=== PATIENT | male | born 1960 | race Caucasian/White ===

== ENCOUNTER 2020-09-25 17:02 | Emergency (ER) | payer SELFPAY ==
[~2020-09-25] VITALS: Ht 170.2 cm; Wt 75.0 kg
--- NOTE | 2020-09-25 17:30 | NUR ---
assumed care of pt. pt here c/o intermittent Chest pressure and SOB with exertion x2 days. pt reports that he started having pain during regular excersize yesterday. pt reports that he was seen by his MD today and given [employer]. pt reports that his pain is very minimal at this time. no SOB, no resp. distress. pink warm and dry. pt reports that he is having some intermittent nausea, no vomiting. no family at bedside
[2020-09-25] MEDS ORDERED: SODIUM CHLORIDE FLUSH 10ML SYR IVF ONE (18:00)
[2020-09-25 18:06] LABS: BASOPHILS % (AUTO) 1 % (0-1); EOSINOPHILS % (AUTO) 1 % (1-7); LYMPHOCYTES % (AUTO) 18 % (22-44); MEAN CORPUSCULAR HEMOGLOBIN 27.7 pg (27.5-34.5); MEAN CORPUSCULAR HGB CONC 33.4 g/dL (33.2-36.2); MEAN PLATELET VOLUME 7.6 fL (7.4-10.4); MONOCYTES % (AUTO) 7 % (2-9); NEUTROPHILS % (AUTO) 74 % (42-75); PLATELET COUNT 250 x10^3/uL (130-400); RED BLOOD COUNT 5.66 x10^6/uL (4.38-5.82); RED CELL DISTRIBUTION WIDTH 18.8 % (9.4-14.8)
[2020-09-25 18:09] LABS: MD NO
[2020-09-25 18:15] LABS: ALBUMIN 3.7 g/dL (3.4-5.0); ANION GAP 3 mmol/L (5-15); CALCIUM 9.1 mg/dL (8.5-10.1); CHLORIDE 108 mmol/L (98-107)
--- NOTE | 2020-09-25 18:15 | NUR ---
lab has been to bedside to draw and CXR has been completed. warm blankets given and pt resting in position of comfort. pt updated on POC
[2020-09-25 18:21] LABS: ALANINE AMINOTRANSFERASE 30 U/L (12-78); ALKALINE PHOSPHATASE 63 U/L (45-117); BILIRUBIN,TOTAL 0.5 mg/dL (0.2-1.0); CREATININE 1.43 mg/dL (0.7-1.3); TOTAL PROTEIN 7.3 g/dL (6.4-8.2); TROPONIN I < 0.015 ng/mL (0.000-0.045)
--- NOTE | 2020-09-25 18:42 | NUR ---
test results back. chart up for MD recheck
[2020-09-25 18:51] VITALS: BP 162/107
--- NOTE | 2020-09-25 18:54 | NUR ---
awaiting recheck report to Suzie ANN
--- NOTE | 2020-09-25 19:15 | NUR ---
PT AMBULATORY BACK FROM BATHROOM C STEADY GAIT. STATES FEELING GREAT, READY TO LEAVE. FAMILY AT BS. PT AWARE CHART UP FOR REVIEW. WILL CTM.
--- NOTE | 2020-09-25 19:38 | NUR ---
ER MD AT BS TO DISCUSS PLAN OF CARE, FOR REPEAT TROP/ADMISSION. WILL MONITOR FOR ORDERS. FAMILY AT BS.
--- NOTE | 2020-09-25 20:01 | NUR ---
PHLEB AT BS.
[2020-09-25 20:25] LABS: TROPONIN I < 0.015 ng/mL (0.000-0.045)
== END 2020-09-25 21:04 | disposition home or self-care (01) ==
LOC: ED 17:32
DX: R07.2 Precordial pain (principal); R94.31 Abnormal electrocardiogram [ECG] [EKG]; Z87.891 Personal history of nicotine dependence
CPT/HCPCS: 36415; 71045; 80053; 84484; 85025; 93005; 99285

== ENCOUNTER 2020-10-10 12:05 | Inpatient (IN) | payer SELFPAY ==
[~2020-10-10] VITALS: Ht 170.2 cm; Wt 74.5 kg
[2020-10-10] MEDS: SODIUM CHLORIDE 0.9% 1,000 ML IV SCH ×2 (06:00→16:00)
[2020-10-10 12:30] LABS: BASOPHILS % (AUTO) 1 % (0-1); EOSINOPHILS % (AUTO) 2 % (1-7); LYMPHOCYTES % (AUTO) 21 % (22-44); MEAN CORPUSCULAR HEMOGLOBIN 27.5 pg (27.5-34.5); MEAN CORPUSCULAR HGB CONC 33.2 g/dL (33.2-36.2); MEAN PLATELET VOLUME 7.8 fL (7.4-10.4); MONOCYTES % (AUTO) 7 % (2-9); NEUTROPHILS % (AUTO) 69 % (42-75); PLATELET COUNT 207 x10^3/uL (130-400); RED BLOOD COUNT 5.56 x10^6/uL (4.38-5.82); RED CELL DISTRIBUTION WIDTH 17.6 % (9.4-14.8)
[2020-10-10 12:31] LABS: MD NO
[2020-10-10 12:43] LABS: ALANINE AMINOTRANSFERASE 36 U/L (12-78); ANION GAP 3 mmol/L (5-15); CALCIUM 8.8 mg/dL (8.5-10.1); CHLORIDE 109 mmol/L (98-107); CREATININE 1.42 mg/dL (0.7-1.3)
[2020-10-10 12:47] LABS: ALKALINE PHOSPHATASE 69 U/L (45-117); BILIRUBIN,TOTAL 0.5 mg/dL (0.2-1.0); TOTAL PROTEIN 7.4 g/dL (6.4-8.2)
--- NOTE | 2020-10-10 13:07 | NUR ---
"MY EPISODES HAVE BEEN GETTING WORSE EVERY DAY. CHEST PAIN, SQUEEZING PAIN, IN THE ARMS" HAS BEEN FOR MONTHS Ecg in triage Trop noted to be positive Roomed- placed on video control engineer
[2020-10-10] MEDS ORDERED: LOSA100T14 PO (13:16)
[2020-10-10] MEDS ORDERED: TRAM50TA2 PO (13:16)
[2020-10-10] MEDS ORDERED: ASPI-963 PO (13:16)
[2020-10-10] MEDS ORDERED: PANT40TA3 PO (13:16)
[2020-10-10] MEDS ORDERED: ASPIRIN 81 MG TABLET CHEW ONE (13:24)
--- NOTE | 2020-10-10 13:25 | NUR ---
medicated per emar with asa for cp/+trop repeat ecg obtained for continued chest pain/ elevated st in lead II on the monitor
[2020-10-10] MEDS ORDERED: ASPIRIN 81 MG TABLET CHEW PO ONE (13:30)
[2020-10-10] MEDS: NITROGLYCERIN OINT 2%, 1GM TP SCH (14:10)
[2020-10-10] MEDS ORDERED: ONDANSETRON ODT 4 MG PO PRN (14:30)
[2020-10-10] MEDS ORDERED: ACETAMINOPHEN 325 MG TABLET PO PRN (14:30)
[2020-10-10] MEDS ORDERED: TEMAZEPAM 15 MG CAPSULE PO PRN (14:30)
[2020-10-10] MEDS ORDERED: morphine SULFATE 10 MG/ML, 1ML IVPush PRN (14:30)
[2020-10-10] MEDS ORDERED: LABETALOL 5MG/ML, 20ML IVPush PRN (14:30)
[2020-10-10] MEDS ORDERED: POLYETHYLENE GLYCOL 17 GM PACKET PO PRN (14:30)
[2020-10-10] MEDS ORDERED: HEPARIN 25,000 UNITS/250ML PMX 250 ML IV PRN ×3 (15:30→16:30)
[2020-10-10 16:06] VITALS: BP 151/86
[2020-10-10] MEDS ORDERED: HEPARIN 5,000 UNITS/ML, 1ML IV ONE (16:30)
[2020-10-10] MEDS ORDERED: HEPARIN 5,000 UNITS/ML, 1ML IV PRN (16:30)
[2020-10-10] MEDS: CARVEDILOL 6.25 MG TABLET PO SCH (18:24)
[2020-10-10] MEDS: ENOXAPARIN 80 MG/0.8 ML SQ SCH (18:25)
[2020-10-10 18:33] LABS: TROPONIN I 0.317 ng/mL (0.000-0.045)
[2020-10-10 20:01] VITALS: BP 148/83
[2020-10-10] MEDS: LOSARTAN 100 MG TAB PO SCH (21:17)
[2020-10-10] MEDS: ATORVASTATIN 80 MG TABLET PO SCH (21:17)
[2020-10-11 00:10] VITALS: BP 133/80
[2020-10-11 00:57] LABS: TROPONIN I 0.258 ng/mL (0.000-0.045)
[2020-10-11 05:10] LABS: LDL/HDL RATIO 3.9 (0.5-3.0)
[2020-10-11] MEDS: ENOXAPARIN 80 MG/0.8 ML SQ SCH (05:42)
[2020-10-11 06:05] VITALS: BP 128/84
[2020-10-11] MEDS: SODIUM CHLORIDE 0.9% 1,000 ML IV SCH ×6 (06:07→22:45)
[2020-10-11] MEDS: CARVEDILOL 6.25 MG TABLET PO SCH ×2 (06:08→15:57)
[2020-10-11 07:56] VITALS: BP 139/85
[2020-10-11] MEDS: ASPIRIN 81 MG TABLET EC PO SCH (08:47)
[2020-10-11] MEDS: PANTOPRAZOLE 40MG TABLET PO SCH (08:48)
[2020-10-11] MEDS: NITROGLYCERIN OINT 2%, 1GM TP SCH (08:48)
[2020-10-11] MEDS ORDERED: ENOXAPARIN 40 MG/0.4 ML SQ SCH (09:00)
[2020-10-11] MEDS ORDERED: VERAPAMIL 2.5 MG/ML, 2ML ONE (10:24)
[2020-10-11] MEDS ORDERED: MIDAZOLAM 1 MG/ML, 2ML ONE ×2 (10:24→11:13)
[2020-10-11] MEDS ORDERED: FENTANYL PF 100 MCG/2ML ONE (10:24)
[2020-10-11] MEDS ORDERED: LIDOCAINE-MPF 1%, 5ML ONE (10:25)
[2020-10-11] MEDS ORDERED: SODIUM CHLORIDE 0.9% 1,000 ML IV SCH (11:00)
[2020-10-11] MEDS ORDERED: TICAGRELOR 90 MG TABLET ONE (11:22)
[2020-10-11] MEDS ORDERED: BIVALIRUDIN 250 MG ONE (11:22)
[2020-10-11 14:35] VITALS: BP 132/68
[2020-10-11 20:00] VITALS: BP 141/90
[2020-10-11] MEDS: ATORVASTATIN 80 MG TABLET PO SCH (21:29)
[2020-10-11] MEDS: LOSARTAN 100 MG TAB PO SCH (21:31)
[2020-10-11] MEDS: TICAGRELOR 90 MG TABLET PO SCH (21:32)
[2020-10-12 02:00] VITALS: BP 122/80
[2020-10-12 05:14] LABS: ANION GAP 3 mmol/L (5-15); CALCIUM 9.1 mg/dL (8.5-10.1); CHLORIDE 107 mmol/L (98-107)
[2020-10-12 05:15] LABS: CREATININE 1.27 mg/dL (0.7-1.3)
[2020-10-12] MEDS: CARVEDILOL 6.25 MG TABLET PO SCH (06:19)
[2020-10-12 06:20] VITALS: BP 128/76
[2020-10-12] MEDS: SODIUM CHLORIDE 0.9% 1,000 ML IV SCH ×2 (08:00→12:00)
[2020-10-12 08:18] VITALS: BP 127/81
[2020-10-12] MEDS: PANTOPRAZOLE 40MG TABLET PO SCH (09:07)
[2020-10-12] MEDS: NITROGLYCERIN OINT 2%, 1GM TP SCH (09:07)
[2020-10-12] MEDS: ASPIRIN 81 MG TABLET EC PO SCH (09:07)
[2020-10-12] MEDS: TICAGRELOR 90 MG TABLET PO SCH (09:07)
[2020-10-12] MEDS ORDERED: CARV6.2512 PO (10:00)
[2020-10-12] MEDS ORDERED: ATOR-2 PO (10:00)
[2020-10-12] MEDS ORDERED: TICA90TA PO (10:00)
== END 2020-10-12 12:44 | disposition home or self-care (01) | DRG 247 ==
LOC: SUATTDRO 14:06 → ED 14:44 → 5SO 15:57 → DCLOUNGE 10-12 12:18
PROVIDERS: ADMIT Internal Medicine; ATTEND Family Medicine
PROC: 4A023N7 Measurement of Cardiac Sampling and Pressure, Left Heart, Percutaneous Approach (ICD-10-PCS; principal; 2020-10-11)
PROC: 027034Z Dilation of Coronary Artery, One Artery with Drug-eluting Intraluminal Device, Percutaneous Approach (ICD-10-PCS; 2020-10-11)
PROC: B2111ZZ Fluoroscopy of Multiple Coronary Arteries using Low Osmolar Contrast (ICD-10-PCS; 2020-10-11)
DX: I21.4 Non-ST elevation (NSTEMI) myocardial infarction (principal); I25.110 Atherosclerotic heart disease of native coronary artery with unstable angina pectoris; N28.9 Disorder of kidney and ureter, unspecified; Z20.822 Contact with and (suspected) exposure to COVID-19; K21.9 Gastro-esophageal reflux disease without esophagitis; M79.18 Myalgia, other site; E78.49 Other hyperlipidemia; F17.200 Nicotine dependence, unspecified, uncomplicated; E78.5 Hyperlipidemia, unspecified; G89.29 Other chronic pain; I10 Essential (primary) hypertension; Z87.11 Personal history of peptic ulcer disease; Z95.5 Presence of coronary angioplasty implant and graft; Z98.1 Arthrodesis status; Z88.0 Allergy status to penicillin; Z79.899 Other long term (current) drug therapy; Z79.891 Long term (current) use of opiate analgesic; Z79.82 Long term (current) use of aspirin; Z79.01 Long term (current) use of anticoagulants; Z80.8 Family history of malignant neoplasm of other organs or systems
CPT/HCPCS: 36415; 93458; 96374; 99291; C9600; 71045; 80048; 80053; 80061; 84484; 85025; 85520; 87635; 93005; 93306; 93356; 93880; 99156; 99157; C1894; G0378; J0583; J1644; J1650; J2250; J3010; C1725; C1769; C1874; C1887; J7030; Q9967

== ENCOUNTER 2020-10-16 13:01 | Emergency (ER) | payer MEDICAID ==
[~2020-10-16] VITALS: Ht 170.2 cm; Wt 72.3 kg
[~2020-10-16 13:01] MED LIST: ASPI-963 PO; ATOR-2 PO; CARV6.2512 PO; LOSA100T14 PO; PANT40TA3 PO; TICA90TA PO; TRAM50TA2 PO
--- NOTE | 2020-10-16 13:16 | NUR ---
EKG IN TRIAGE
[2020-10-16] MEDS ORDERED: SODIUM CHLORIDE 0.9% 1,000ML IVBOLUS ONE (14:00)
[2020-10-16] MEDS ORDERED: SODIUM CHLORIDE FLUSH 10ML SYR IVF ONE (14:00)
[2020-10-16] MEDS ORDERED: MECLIZINE CHEWABLE 25 MG TAB PO ONE (14:00)
[2020-10-16 14:19] LABS: BASOPHILS % (AUTO) 1 % (0-1); EOSINOPHILS % (AUTO) 4 % (1-7); LYMPHOCYTES % (AUTO) 18 % (22-44); MEAN CORPUSCULAR HEMOGLOBIN 27.5 pg (27.5-34.5); MEAN CORPUSCULAR HGB CONC 33.1 g/dL (33.2-36.2); MONOCYTES % (AUTO) 6 % (2-9); NEUTROPHILS % (AUTO) 71 % (42-75); PLATELET COUNT 209 x10^3/uL (130-400); RED BLOOD COUNT 6.06 x10^6/uL (4.38-5.82); RED CELL DISTRIBUTION WIDTH 17.5 % (9.4-14.8)
[2020-10-16 14:22] LABS: MD NO
[2020-10-16] MEDS ORDERED: MECLIZINE CHEWABLE 25 MG TAB ONE (14:26)
[2020-10-16 14:29] LABS: ALANINE AMINOTRANSFERASE 46 U/L (12-78); ALBUMIN 3.8 g/dL (3.4-5.0); ANION GAP 1 mmol/L (5-15); CALCIUM 9.1 mg/dL (8.5-10.1); CHLORIDE 106 mmol/L (98-107); CREATININE 1.32 mg/dL (0.7-1.3)
--- NOTE | 2020-10-16 14:53 | NUR ---
PT C/O OF HAVING TROUBLED BREATJHING AND SWEATING AT 6AM. TOOK MEDICATION AT 0700 AND CHEST PRESSURE BEGAN. PT BEGAN TO GET DIZZY, NEASEA AND LIGHT HEADED AROUND 1000 SO PT DECIDED TO COME INTO ED.
[2020-10-16 14:55] LABS: ALKALINE PHOSPHATASE 83 U/L (45-117); BILIRUBIN,TOTAL 0.6 mg/dL (0.2-1.0)
--- NOTE | 2020-10-16 14:55 | NUR ---
PT ATTACHED TO CARDIAC, SP02, AND BP MONITORS. VSS. NAD. RESTING IN BED ANSWERING ALL QUESTIONS,.
[2020-10-16 14:56] LABS: TOTAL PROTEIN 7.5 g/dL (6.4-8.2); TROPONIN I < 0.015 ng/mL (0.000-0.045)
[2020-10-16 17:09] VITALS: BP 158/91
== END 2020-10-16 17:13 | disposition home or self-care (01) ==
LOC: ED 14:00
DX: R42 Dizziness and giddiness (principal); R06.02 Shortness of breath; R51.9 Headache, unspecified; R00.9 Unspecified abnormalities of heart beat; I10 Essential (primary) hypertension; R11.0 Nausea; I25.2 Old myocardial infarction
CPT/HCPCS: 36415; 70450; 71045; 80053; 83605; 83735; 83880; 84484; 85025; 93005; 96360; 99285; J7030

== ENCOUNTER 2020-10-28 17:38 | Observation (INO) | payer MEDICAID, OTHER ==
[~2020-10-28] VITALS: Ht 170.2 cm; Wt 72.7 kg
--- NOTE | 2020-10-28 18:03 | NUR ---
ASSUMED CARE OF PATIENT. PATIENT HAD A STENT X2 WEEKS AGO. TODAY, PT REPORTS LEFT SIDED CHEST PRESSURE THAT GOES TO MIDDLE BACK. PT ALSO HAS HAD SOME TINGLING IN HIS FAECE. SYMPTOMS STARTES AT 5 AM. VS STABLE. BROKE BEATER ON. CALL LIGHT IN PLACE. WILL CONTINUE TO MONITOR.
[2020-10-28] MEDS ORDERED: ASPIRIN 81 MG TABLET CHEW PO ONE (18:30)
[2020-10-28] MEDS ORDERED: PRASUGREL PO (18:30)
[2020-10-28] MEDS ORDERED: ASPIRIN 81 MG TABLET CHEW ONE (18:34)
--- NOTE | 2020-10-28 18:34 | NUR ---
LAB IN ROOM DRAWING LABS
[2020-10-28 18:49] LABS: BASOPHILS % (AUTO) 1 % (0-1); EOSINOPHILS % (AUTO) 4 % (1-7); LYMPHOCYTES % (AUTO) 26 % (22-44); MEAN CORPUSCULAR HEMOGLOBIN 27.8 pg (27.5-34.5); MEAN CORPUSCULAR HGB CONC 33.2 g/dL (33.2-36.2); MEAN PLATELET VOLUME 7.6 fL (7.4-10.4); MONOCYTES % (AUTO) 7 % (2-9); NEUTROPHILS % (AUTO) 62 % (42-75); PLATELET COUNT 203 x10^3/uL (130-400); RED BLOOD COUNT 5.42 x10^6/uL (4.38-5.82); RED CELL DISTRIBUTION WIDTH 17.6 % (9.4-14.8)
[2020-10-28 18:55] LABS: ALANINE AMINOTRANSFERASE 59 U/L (12-78); ALBUMIN 3.8 g/dL (3.4-5.0); CALCIUM 8.8 mg/dL (8.5-10.1); CHLORIDE 108 mmol/L (98-107); CREATININE 1.24 mg/dL (0.7-1.3)
[2020-10-28 18:59] LABS: ALKALINE PHOSPHATASE 79 U/L (45-117); BILIRUBIN,TOTAL 0.4 mg/dL (0.2-1.0); TOTAL PROTEIN 6.9 g/dL (6.4-8.2); TROPONIN I < 0.015 ng/mL (0.000-0.045)
[2020-10-28 19:02] LABS: ANION GAP 5 mmol/L (5-15)
[2020-10-28 19:05] LABS: MD NO
--- NOTE | 2020-10-28 19:56 | NUR ---
PT RESTING IN ROOM. VS STABLE. COLLATERAL CLERK ON. NSR NOTED. PT TO BE A ADMIT.
[2020-10-28] MEDS ORDERED: ONDANSETRON 2MG/ML, 2ML IVPush PRN (21:30)
[2020-10-28] MEDS ORDERED: ACETAMINOPHEN 325 MG TABLET PO PRN (21:30)
[2020-10-28] MEDS ORDERED: ENOXAPARIN 40 MG/0.4 ML SQ SCH (21:30)
[2020-10-28] MEDS ORDERED: ONDANSETRON ODT 4 MG PO PRN (21:30)
[2020-10-28] MEDS ORDERED: BISACODYL 10 MG SUPP PR PRN (21:30)
[2020-10-28] MEDS ORDERED: POLYETHYLENE GLYCOL 17 GM PACKET PO PRN (21:30)
[2020-10-28] MEDS ORDERED: PROMETHAZINE 25 MG/ML, 1ML IM PRN (21:30)
[2020-10-28] MEDS ORDERED: hydrALAzine 20 MG/ML, 1ML IVPush PRN (21:30)
[2020-10-28] MEDS ORDERED: OXYcodone IR 5MG TABLET PO PRN (21:30)
[2020-10-28] MEDS ORDERED: DOCUSATE 100 MG CAPSULE PO PRN (21:30)
[2020-10-28] MEDS ORDERED: LOSARTAN 100 MG TAB PO SCH (22:00)
[2020-10-28] MEDS ORDERED: ATORVASTATIN 80 MG TABLET PO SCH (22:00)
[2020-10-28 22:29] VITALS: BP 153/84
[2020-10-29 01:47] VITALS: BP 113/73
[2020-10-29 02:24] LABS: TROPONIN I < 0.015 ng/mL (0.000-0.045)
[2020-10-29 05:21] LABS: ALBUMIN 3.4 g/dL (3.4-5.0); CHLORIDE 109 mmol/L (98-107)
[2020-10-29 05:31] LABS: ALANINE AMINOTRANSFERASE 54 U/L (12-78); ALKALINE PHOSPHATASE 68 U/L (45-117); ANION GAP 5 mmol/L (5-15); BILIRUBIN,TOTAL 0.5 mg/dL (0.2-1.0); CALCIUM 8.7 mg/dL (8.5-10.1); CHOL/HDL RATIO 3.6; CHOLESTEROL, TOTAL 136 mg/dL (140-239); CREATININE 1.34 mg/dL (0.7-1.3); HDL CHOL % 28 % (26-37); HDL CHOLESTEROL (DIRECT) 38 mg/dL (40-60); LDL CHOLESTEROL,CALCULATED 61 mg/dL (54-169); LDL/HDL RATIO 1.6 (0.5-3.0); TOTAL PROTEIN 6.5 g/dL (6.4-8.2); TRIGLYCERIDES 187 mg/dL (50-200); TROPONIN I < 0.015 ng/mL (0.000-0.045); VLDL CHOLESTEROL 37 mg/dL (0-25)
[2020-10-29 05:39] VITALS: BP 126/78
[2020-10-29] MEDS ORDERED: CARVEDILOL 6.25 MG TABLET PO SCH (06:00)
[2020-10-29 06:16] LABS: BASOPHILS % (AUTO) 1 % (0-1); EOSINOPHILS % (AUTO) 4 % (1-7); LYMPHOCYTES % (AUTO) 28 % (22-44); MD NO; MEAN CORPUSCULAR HEMOGLOBIN 27.8 pg (27.5-34.5); MEAN CORPUSCULAR HGB CONC 33.1 g/dL (33.2-36.2); MEAN PLATELET VOLUME 7.9 fL (7.4-10.4); MONOCYTES % (AUTO) 8 % (2-9); NEUTROPHILS % (AUTO) 60 % (42-75); PLATELET COUNT 193 x10^3/uL (130-400); RED BLOOD COUNT 5.37 x10^6/uL (4.38-5.82); RED CELL DISTRIBUTION WIDTH 17.8 % (9.4-14.8)
[2020-10-29] MEDS ORDERED: PANTOPRAZOLE 40MG TABLET PO SCH (07:30)
[2020-10-29] MEDS ORDERED: CARV6.2512 PO (08:33)
[2020-10-29] MEDS ORDERED: PRASUGREL 10 MG TABLET PO SCH (09:00)
[2020-10-29] MEDS ORDERED: ASPIRIN 81 MG TABLET EC PO SCH (09:00)
== END 2020-10-29 10:10 | disposition home or self-care (01) ==
LOC: ED 18:41 → INTOOBSV 19:45 → EDIP 19:45 → 5SO 21:52 → DCLOUNGE 10-29 10:07
PROVIDERS: ADMIT Internal Medicine; ATTEND Family Medicine
DX: R07.9 Chest pain, unspecified (principal); R42 Dizziness and giddiness; I10 Essential (primary) hypertension; E78.5 Hyperlipidemia, unspecified; I25.110 Atherosclerotic heart disease of native coronary artery with unstable angina pectoris; I25.2 Old myocardial infarction; M79.18 Myalgia, other site; Z95.5 Presence of coronary angioplasty implant and graft
CPT/HCPCS: 36415; 71045; 80053; 80061; 83036; 83735; 84100; 84443; 84484; 85025; 93005; 96372; 96374; 99285; G0378; J1650; J2405